=== PATIENT | female | born 1950 | race Caucasian/White ===

== ENCOUNTER 2019-01-30 12:26 | Day surgery (SDC) | payer MEDICARE ==
[~2019-01-30] VITALS: Ht 170.2 cm; Wt 126.1 kg
--- NOTE | 2019-01-30 13:00 | NUR ---
Dr Torres here, discussed postponing procedure today. CT of abdomen and pelvis ordered with out contrast. PT to d/c home after CT/from CT
--- NOTE | 2019-01-30 13:40 | NUR ---
pt to CT and then to home. To CT with all personal belongings, Addendum: 01/30/19 at 1429 by Jina Pan RN Amended: Links added.
== END 2019-01-30 13:40 | disposition home or self-care (01) ==
LOC: SSTAY O 12:26
PROVIDERS: ATTEND Radiology Diagnostic Radiology
DX: K46.9 Unspecified abdominal hernia without obstruction or gangrene (principal); E11.9 Type 2 diabetes mellitus without complications; I10 Essential (primary) hypertension; F41.8 Other specified anxiety disorders; E03.9 Hypothyroidism, unspecified; E78.5 Hyperlipidemia, unspecified; Z90.49 Acquired absence of other specified parts of digestive tract; Z98.890 Other specified postprocedural states; Z79.899 Other long term (current) drug therapy
CPT/HCPCS: 74176

== ENCOUNTER 2019-02-02 06:07 | Day surgery (SDC) | payer MEDICARE ==
[~2019-02-02] VITALS: Ht 170.2 cm; Wt 126.5 kg
[2019-02-02 06:40] VITALS: BP 149/72
[2019-02-02] MEDS ORDERED: PRAV20TA4 PO (06:45)
[2019-02-02] MEDS ORDERED: HYDR12.55 PO (06:45)
[2019-02-02] MEDS ORDERED: LEVO125T PO (06:45)
[2019-02-02] MEDS ORDERED: LISI-600 PO (06:45)
[2019-02-02] MEDS ORDERED: ATEN-169 PO (06:45)
[2019-02-02] MEDS ORDERED: CITA40TA22 PO (06:45)
[2019-02-02] MEDS ORDERED: normal saline 1000ml 1,000 ML IV PRN (06:55)
[2019-02-02] MEDS ORDERED: SITA1TAB2 PO (07:40)
[2019-02-02] MEDS ORDERED: ALPR-624 PO (07:42)
[2019-02-02 07:46] LABS: BASOPHILS % (AUTO) 0.7 % (0-1); EOSINOPHILS # (AUTO) 0.1 X10'3 (0-0.9); EOSINOPHILS % (AUTO) 2.2 % (0-6); HEMATOCRIT 40.5 % (35.0-45.0); HEMOGLOBIN 14.2 g/dl (12.0-16.0); LYMPHOCYTES # (AUTO) 1.7 X10'3 (1.1-4.8); LYMPHOCYTES % (AUTO) 24.4 % (21-51); MEAN CORPUSCULAR HGB CONC 35.1 g/dL (33.0-36.5); MEAN CORPUSCULAR VOLUME 94.2 FL (78-98); MEAN PLATELET VOLUME 8.6 FL (7.4-10.4); MONOCYTES # (AUTO) 0.5 X10'3 (0-0.9); MONOCYTES % (AUTO) 7.6 % (2-12); NEUTROPHILS # (AUTO) 4.5 X10'3 (1.8-7.7); NEUTROPHILS % (AUTO) 65.1 % (42-75); PLATELET COUNT 234 X10'3 (140-440); RED CELL DISTRIBUTION WIDTH 13.2 % (11.5-14.5); WHITE BLOOD COUNT 6.9 X10'3 (4.5-11.0)
[2019-02-02 07:53] LABS: ALBUMIN 3.1 G/DL (3.4-5.0); ANION GAP 9 (8-16); BLOOD UREA NITROGEN 31 MG/DL (7-18); BUN/CREATININE RATIO 33.7 (6.6-38.0); CALCIUM 10.1 MG/DL (8.5-10.1); CHLORIDE 97 MMOL/L (99-107); CREATININE 0.92 MG/DL (0.40-0.90); GLUCOSE 406 MG/DL (70-104); SODIUM 134 MMOL/L (135-145); TOTAL CARBON DIOXIDE 27.9 MMOL/L (24-32); eGFR 61 ML/MIN
[2019-02-02 08:03] LABS: PROTHROMBIN TIME 10.1 SECONDS (9.0-12.0)
[2019-02-02] MEDS ORDERED: midazolam 2 mg/2 ml injection IV PRN (08:15)
[2019-02-02] MEDS ORDERED: LIDOcaine 1%/PF 5ML 10 MG/ML VIAL SQ ONE (08:15)
[2019-02-02] MEDS ORDERED: normal saline 1000ml 1,000 ML IV SCH (08:15)
[2019-02-02] MEDS ORDERED: fentaNYL/PF 50MCG/1 ML 2ML syringe IV PRN (08:15)
[2019-02-02] MEDS ORDERED: fentaNYL/PF 50MCG/1 ML 2ML syringe ONE (08:22)
[2019-02-02] MEDS ORDERED: INSU300I SQ (08:22)
[2019-02-02 08:24] VITALS: BP 159/121
[2019-02-02] MEDS ORDERED: iohexol 350 MG/ML 50ML vial IV ONE (08:24)
--- NOTE | 2019-02-02 08:24 | NUR ---
call to angio suite Dr Concepcion not in yet, informed of [address] Concepcion not in yet Rodolfo RN states will inform Dr upon arrival. Justin Ceballos ORGANIZATIONAL EFFECTIVENESS DIRECTOR in unit for H & P on Pt, informed of elevated Blood Sugar of 412, no new orders as of yet.
--- NOTE | 2019-02-02 08:28 | NUR ---
Rodolfo here to tx pt to CT. Rodolfo RN states Dr Jamey arceo with Blood sugar value 412 at this time
[2019-02-02 09:34] VITALS: BP 118/69
[2019-02-02 09:50] VITALS: BP 161/85
[2019-02-02 10:00] VITALS: BP 176/86
[2019-02-02 10:15] VITALS: BP 156/83
== END 2019-02-02 10:45 | disposition home or self-care (01) ==
LOC: SSTAY O 06:07
PROVIDERS: ATTEND Radiology Vascular & Interventional Radiology
DX: K46.9 Unspecified abdominal hernia without obstruction or gangrene (principal); E11.9 Type 2 diabetes mellitus without complications; I10 Essential (primary) hypertension; F41.8 Other specified anxiety disorders; E03.9 Hypothyroidism, unspecified; E78.5 Hyperlipidemia, unspecified; Z90.49 Acquired absence of other specified parts of digestive tract; Z98.890 Other specified postprocedural states; Z79.899 Other long term (current) drug therapy
CPT/HCPCS: 36415; 74160; 80048; 82948; 85025; 85610; J3010; J7030; Q9967

== ENCOUNTER 2020-08-22 13:30 | Emergency (ER) | payer MEDICARE ==
[~2020-08-22] VITALS: Ht 167.6 cm; Wt 154.6 kg
[~2020-08-22 13:30] MED LIST: ALPR-624 PO; ATEN-169 PO; CITA40TA22 PO; HYDR12.55 PO; INSU300I SQ; LEVO125T PO; LISI-600 PO; PRAV20TA4 PO
[2020-08-22 14:30] LABS: BASOPHILS % (AUTO) 0.7 % (0-1); EOSINOPHILS % (AUTO) 0.6 % (0-6); HEMOGLOBIN 15.2 g/dl (12.0-16.0); LYMPHOCYTES # (AUTO) 1.8 X10'3 (1.1-4.8); LYMPHOCYTES % (AUTO) 29.5 % (21-51); MEAN CORPUSCULAR HEMOGLOBIN 37.1 PG (27.0-31.0); MEAN CORPUSCULAR HGB CONC 35.4 g/dL (33.0-36.5); MEAN PLATELET VOLUME 8.3 FL (7.4-10.4); MONOCYTES # (AUTO) 0.6 X10'3 (0-0.9); MONOCYTES % (AUTO) 9.3 % (2-12); NEUTROPHILS # (AUTO) 3.6 X10'3 (1.8-7.7); NEUTROPHILS % (AUTO) 59.9 % (42-75); PLATELET COUNT 289 X10'3 (140-440); RED BLOOD COUNT 4.09 X10'6 (4.20-5.60); RED CELL DISTRIBUTION WIDTH 13.1 % (11.5-14.5); WHITE BLOOD COUNT 5.9 X10'3 (4.5-11.0)
[2020-08-22 14:44] LABS: ALANINE AMINOTRANSFERASE 38 U/L (12-78); ALBUMIN 3.1 G/DL (3.4-5.0); ALBUMIN/GLOBULIN RATIO 0.7 (1.1-1.5); ALKALINE PHOSPHATASE 28 IU/L (46-116); ANION GAP 8 (8-16); ASPARTATE AMINO TRANSFERASE 49 U/L (10-37); BILIRUBIN,TOTAL 0.3 MG/DL (0.1-1.0); BLOOD UREA NITROGEN 25 MG/DL (7-18); BUN/CREATININE RATIO 24.8 (6.6-38.0); CALCIUM 9.8 MG/DL (8.5-10.1); CHLORIDE 91 MMOL/L (99-107); CREATININE 1.01 MG/DL (0.40-0.90); GLUCOSE 342 MG/DL (70-104); POTASSIUM 4.7 MMOL/L (3.5-5.1); SODIUM 128 MMOL/L (135-145); TOTAL PROTEIN 7.8 G/DL (6.4-8.2); eGFR 54 ML/MIN
[2020-08-22 14:47] LABS: LIPASE 306 U/L (73-393); TROPONIN I < 0.04 NG/ML (0.0-0.05)
--- NOTE | 2020-08-22 15:35 | NUR ---
call to son for ride, no answer,left message
--- NOTE | 2020-08-22 15:42 | NUR ---
second call to son for a ride, no answer
[2020-08-22 15:44] VITALS: BP 155/79
--- NOTE | 2020-08-22 15:51 | NUR ---
[facility] called for patient estimated time of arrival is 1620.
== END 2020-08-22 15:50 | disposition home or self-care (01) ==
LOC: ER 13:31
DX: R10.9 Unspecified abdominal pain (principal); F03.90 Unspecified dementia, unspecified severity, without behavioral disturbance, psychotic disturbance, mood disturbance, and anxiety; K46.9 Unspecified abdominal hernia without obstruction or gangrene
CPT/HCPCS: 36415; 71045; 80053; 83605; 83690; 84484; 85025; 93005; 99285

== ENCOUNTER 2021-06-15 13:12 | Emergency (ER) | payer MEDICARE ==
[~2021-06-15] VITALS: Ht 167.6 cm; Wt 119.1 kg
[~2021-06-15 13:12] MED LIST changes: -ALPR-624 PO; -ATEN-169 PO; +CITA20TA26 PO; -CITA40TA22 PO; +DILT240C92 PO; +DONE10TA44 PO; +GABA-530 PO; -HYDR12.55 PO; -LEVO125T PO; +LEVO125T8 PO; -LISI-600 PO; +LOP25T PO; +MAGN400T28 PO; +MEMA5TAB42 PO; +OMEP-50 PO; -PRAV20TA4 PO; +TRAM50TA2 PO; +WARF4TAB69 PO; +ZOLP5TAB8 PO
[2021-06-15 13:56] VITALS: BP 170/98
[2021-06-15] MEDS ORDERED: HYDR-3965 PO (14:05)
[2021-06-15] MEDS ORDERED: ONDA4TAB6 PO (14:05)
== END 2021-06-15 14:11 | disposition home or self-care (01) ==
LOC: ER 13:12
DX: G89.29 Other chronic pain (principal); R10.31 Right lower quadrant pain; F03.90 Unspecified dementia, unspecified severity, without behavioral disturbance, psychotic disturbance, mood disturbance, and anxiety; I48.91 Unspecified atrial fibrillation; I10 Essential (primary) hypertension; E11.9 Type 2 diabetes mellitus without complications; E03.9 Hypothyroidism, unspecified; Z79.01 Long term (current) use of anticoagulants; Z79.4 Long term (current) use of insulin; Z79.899 Other long term (current) drug therapy
CPT/HCPCS: 99283

== ENCOUNTER 2021-10-01 10:34 | Emergency (ER) | payer MEDICARE ==
[~2021-10-01] VITALS: Ht 167.6 cm; Wt 100.0 kg
[~2021-10-01 10:34] MED LIST changes: -MAGN400T28 PO; +MAGN400T56 PO; +ONDA4TAB6 PO
[2021-10-01 10:35] VITALS: BP 144/84
[2021-10-01] MEDS ORDERED: normal saline 1000ml 1,000 ML IV ONE ×2 (10:50→12:10)
[2021-10-01 11:07] LABS: BASOPHILS # (AUTO) 0.1 X10'3 (0-0.2); BASOPHILS % (AUTO) 0.6 % (0-1); EOSINOPHILS % (AUTO) 0.2 % (0-6); HEMATOCRIT 47.3 % (35.0-45.0); HEMOGLOBIN 16.7 g/dl (12.0-16.0); LYMPHOCYTES # (AUTO) 1.6 X10'3 (1.1-4.8); LYMPHOCYTES % (AUTO) 16.2 % (21-51); MEAN CORPUSCULAR HEMOGLOBIN 34.1 PG (27.0-31.0); MEAN CORPUSCULAR HGB CONC 35.4 g/dL (33.0-36.5); MEAN CORPUSCULAR VOLUME 96.4 FL (78-98); MEAN PLATELET VOLUME 8.3 FL (7.4-10.4); MONOCYTES # (AUTO) 0.6 X10'3 (0-0.9); MONOCYTES % (AUTO) 6.5 % (2-12); NEUTROPHILS # (AUTO) 7.5 X10'3 (1.8-7.7); NEUTROPHILS % (AUTO) 76.5 % (42-75); PLATELET COUNT 365 X10'3 (140-440); RED BLOOD COUNT 4.91 X10'6 (4.20-5.60); RED CELL DISTRIBUTION WIDTH 12.4 % (11.5-14.5); WHITE BLOOD COUNT 9.8 X10'3 (4.5-11.0)
[2021-10-01 11:27] LABS: ALANINE AMINOTRANSFERASE 21 U/L (12-78); ALBUMIN 3.5 G/DL (3.4-5.0); ALBUMIN/GLOBULIN RATIO 0.6 (1.1-1.5); ALKALINE PHOSPHATASE 25 IU/L (46-116); ANION GAP 15 (8-16); BILIRUBIN,TOTAL 0.7 MG/DL (0.1-1.0); BLOOD UREA NITROGEN 35 MG/DL (7-18); BUN/CREATININE RATIO 26.1 (6.6-38.0); CALCIUM 10.2 MG/DL (8.5-10.1); CHLORIDE 95 MMOL/L (99-107); CREATININE 1.34 MG/DL (0.40-0.90); GLUCOSE 433 MG/DL (70-104); SODIUM 132 MMOL/L (135-145); TOTAL CARBON DIOXIDE 21.7 MMOL/L (24-32); TOTAL PROTEIN 8.9 G/DL (6.4-8.2); eGFR 39 ML/MIN
[2021-10-01 11:33] LABS: ASPARTATE AMINO TRANSFERASE 33 U/L (10-37); LIPASE 207 U/L (73-393); MAGNESIUM 1.9 MG/DL (1.5-2.4); POTASSIUM 4.6 MMOL/L (3.5-5.1)
[2021-10-01] MEDS ORDERED: morphine 4 MG/ML inj SYRINge IV ONE (12:10)
[2021-10-01] MEDS ORDERED: ondansetron/PF 4mg/2ml inj IV ONE (12:10)
[2021-10-01] MEDS ORDERED: insulin regular, human 10 units/0.1 ml syringe IV ONE ×2 (12:10→13:45)
[2021-10-01] MEDS ORDERED: acetaminophen 325mg tablet PO ONE (12:10)
[2021-10-01 12:49] LABS: CLARITY,URINE SLIGHTLY CLOUDY (Clear); COLOR,URINE YELLOW (Yellow); GLUCOSE, URINE >=1000 mg/dl (Neg); KETONES,URINE NEGATIVE (Neg); LEUKOCYTE ESTERASE ,URINE NEGATIVE (Neg); NITRITES, URINE NEGATIVE (Neg); OCCULT BLOOD,URINE MODERATE (Neg); PH,URINE 5.5 (4.8-8.0); PROTEIN,URINE >=300 mg/dl (Neg); UROBILINOGEN,URINE 0.2 E.U/dL (0.2-1.0)
[2021-10-01 12:52] LABS: UA COLLECTION TYPE VOIDED
[2021-10-01 12:55] LABS: HYALINE CASTS 0-3 /LPF (NEGATIVE); SQUAMOUS EPITHELIAL CELL,UR MANY /LPF (FEW)
[2021-10-01 12:57] LABS: RBC,URINE 0-2 /HPF (0-2)
[2021-10-01 13:03] LABS: BACTERIA,URINE 2+ /HPF (Neg)
[2021-10-01] MEDS ORDERED: loperamide 2mg capsule PO ONE (13:25)
[2021-10-01] MEDS ORDERED: ONDA4TAB6 PO (13:39)
[2021-10-01] MEDS ORDERED: LOPE2CAP PO (13:39)
== END 2021-10-02 06:57 | disposition home or self-care (01) ==
LOC: ER 10:34
DX: M79.10 Myalgia, unspecified site (principal); Z20.822 Contact with and (suspected) exposure to COVID-19; K52.9 Noninfective gastroenteritis and colitis, unspecified; R11.2 Nausea with vomiting, unspecified; R52 Pain, unspecified; E11.65 Type 2 diabetes mellitus with hyperglycemia; I48.91 Unspecified atrial fibrillation; I10 Essential (primary) hypertension; E03.9 Hypothyroidism, unspecified; Z79.4 Long term (current) use of insulin; Z79.899 Other long term (current) drug therapy
CPT/HCPCS: 36415; 71045; 80053; 81001; 82948; 83690; 83735; 84145; 84484; 85025; 87635; 93005; 96361; 96374; 96375; 99285; C9803; J1815; J2270; J2405; J7030

== ENCOUNTER 2021-10-04 13:32 | Emergency (ER) | payer MEDICARE ==
[~2021-10-04] VITALS: Ht 170.2 cm; Wt 118.2 kg
[~2021-10-04 13:32] MED LIST changes: +LOPE2CAP PO
[2021-10-04] MEDS ORDERED: ondansetron/PF 4mg/2ml inj IV ONE (14:15)
[2021-10-04] MEDS ORDERED: normal saline 1000ML IV soln IVB ONE (14:15)
[2021-10-04 15:33] LABS: BASOPHILS # (AUTO) 0.1 X10'3 (0-0.2); EOSINOPHILS # (AUTO) 0.1 X10'3 (0-0.9); EOSINOPHILS % (AUTO) 1.1 % (0-6); HEMATOCRIT 44.1 % (35.0-45.0); HEMOGLOBIN 15.7 g/dl (12.0-16.0); LYMPHOCYTES % (AUTO) 31.6 % (21-51); MEAN CORPUSCULAR HEMOGLOBIN 34.4 PG (27.0-31.0); MEAN CORPUSCULAR HGB CONC 35.5 g/dL (33.0-36.5); MEAN CORPUSCULAR VOLUME 96.8 FL (78-98); MEAN PLATELET VOLUME 8.5 FL (7.4-10.4); MONOCYTES # (AUTO) 0.8 X10'3 (0-0.9); MONOCYTES % (AUTO) 11.9 % (2-12); NEUTROPHILS # (AUTO) 3.5 X10'3 (1.8-7.7); NEUTROPHILS % (AUTO) 54.4 % (42-75); PLATELET COUNT 334 X10'3 (140-440); RED BLOOD COUNT 4.55 X10'6 (4.20-5.60); RED CELL DISTRIBUTION WIDTH 12.6 % (11.5-14.5); WHITE BLOOD COUNT 6.4 X10'3 (4.5-11.0)
[2021-10-04 15:36] LABS: ALANINE AMINOTRANSFERASE 27 U/L (12-78); ALBUMIN 3.3 G/DL (3.4-5.0); ALBUMIN/GLOBULIN RATIO 0.7 (1.1-1.5); ALKALINE PHOSPHATASE 23 IU/L (46-116); ANION GAP 11 (8-16); ASPARTATE AMINO TRANSFERASE 33 U/L (10-37); BILIRUBIN,TOTAL 0.4 MG/DL (0.1-1.0); BLOOD UREA NITROGEN 24 MG/DL (7-18); BUN/CREATININE RATIO 24.2 (6.6-38.0); CHLORIDE 99 MMOL/L (99-107); CREATININE 0.99 MG/DL (0.40-0.90); GLUCOSE 283 MG/DL (70-104); LIPASE 134 U/L (73-393); POTASSIUM 4.1 MMOL/L (3.5-5.1); SODIUM 134 MMOL/L (135-145); TOTAL CARBON DIOXIDE 24.5 MMOL/L (24-32); TOTAL PROTEIN 8.2 G/DL (6.4-8.2); eGFR 55 ML/MIN
[2021-10-04 15:48] LABS: CALCIUM 10.3 MG/DL (8.5-10.1)
[2021-10-04] MEDS ORDERED: CEPH250T PO (15:56)
[2021-10-04 16:14] LABS: CLARITY,URINE CLEAR (Clear); COLOR,URINE YELLOW (Yellow); GLUCOSE, URINE >=1000 mg/dl (Neg); KETONES,URINE NEGATIVE (Neg); LEUKOCYTE ESTERASE ,URINE NEGATIVE (Neg); NITRITES, URINE NEGATIVE (Neg); OCCULT BLOOD,URINE SMALL (Neg); PH,URINE 5.5 (4.8-8.0); PROTEIN,URINE >=300 mg/dl (Neg); UROBILINOGEN,URINE 0.2 E.U/dL (0.2-1.0)
[2021-10-04 16:22] LABS: UA COLLECTION TYPE CLN CATCH MIDSTREAM
[2021-10-04 16:23] LABS: BACTERIA,URINE NONE SEEN /HPF (Neg); MUCUS STRANDS FEW /LPF (Neg); RBC,URINE 0-2 /HPF (0-2); SQUAMOUS EPITHELIAL CELL,UR FEW /LPF (FEW); TRANSITIONAL EPI CELLS,URINE FEW /HPF; WBC,URINE 0-4 /HPF (0-4)
[2021-10-04 17:04] VITALS: BP 166/70
== END 2021-10-04 17:18 | disposition home or self-care (01) ==
LOC: ER 13:32
DX: N39.0 Urinary tract infection, site not specified (principal); M79.604 Pain in right leg; M79.605 Pain in left leg; R20.0 Anesthesia of skin; F03.91 Unspecified dementia, unspecified severity, with behavioral disturbance; I48.91 Unspecified atrial fibrillation; I10 Essential (primary) hypertension; E11.9 Type 2 diabetes mellitus without complications; E03.9 Hypothyroidism, unspecified; Z79.4 Long term (current) use of insulin; Z79.899 Other long term (current) drug therapy; Z79.01 Long term (current) use of anticoagulants; Z79.2 Long term (current) use of antibiotics; Z98.890 Other specified postprocedural states
CPT/HCPCS: 36415; 80053; 81001; 83690; 85025; 96361; 96374; 99283; J2405; J7030; 99284

== ENCOUNTER 2022-03-31 18:42 | Emergency (ER) | payer MEDICARE ==
[~2022-03-31] VITALS: Ht 170.2 cm; Wt 136.4 kg
[~2022-03-31 18:42] MED LIST changes: -OMEP-50 PO; +OMEP20CA16 PO
[2022-03-31 20:47] VITALS: BP 105/70
[2022-03-31] MEDS ORDERED: acetaminophen 325mg tablet PO ONE (22:20)
[2022-03-31 22:43] LABS: BASOPHILS % (AUTO) 0.9 % (0-1); EOSINOPHILS % (AUTO) 0.4 % (0-6); HEMATOCRIT 39.5 % (35.0-45.0); HEMOGLOBIN 13.9 g/dl (12.0-16.0); LYMPHOCYTES # (AUTO) 0.9 X10'3 (1.1-4.8); MEAN CORPUSCULAR HEMOGLOBIN 33.8 PG (27.0-31.0); MEAN CORPUSCULAR HGB CONC 35.2 g/dL (33.0-36.5); MEAN PLATELET VOLUME 7.9 FL (7.4-10.4); MONOCYTES # (AUTO) 0.5 X10'3 (0-0.9); MONOCYTES % (AUTO) 10.6 % (2-12); NEUTROPHILS # (AUTO) 3.1 X10'3 (1.8-7.7); NEUTROPHILS % (AUTO) 69.1 % (42-75); PLATELET COUNT 254 X10'3 (140-440); RED BLOOD COUNT 4.12 X10'6 (4.20-5.60); RED CELL DISTRIBUTION WIDTH 13.4 % (11.5-14.5); WHITE BLOOD COUNT 4.5 X10'3 (4.5-11.0)
[2022-03-31] MEDS ORDERED: HYDROcodone/acetaminophen 5mg/325mg tablet PO ONE (23:30)
[2022-03-31] MEDS ORDERED: ondansetron 4mg rapidly disintigrating tab PO ONE (23:30)
[2022-03-31 23:37] LABS: ALANINE AMINOTRANSFERASE 32 U/L (12-78); ALBUMIN 3.1 G/DL (3.4-5.0); ALBUMIN/GLOBULIN RATIO 0.7 (1.1-1.5); ALKALINE PHOSPHATASE 20 IU/L (46-116); ANION GAP 12 (8-16); ASPARTATE AMINO TRANSFERASE 40 U/L (10-37); BILIRUBIN,TOTAL 0.1 MG/DL (0.1-1.0); BLOOD UREA NITROGEN 30 MG/DL (7-18); BUN/CREATININE RATIO 27.3 (6.6-38.0); CALCIUM 9.3 MG/DL (8.5-10.1); CHLORIDE 98 MMOL/L (99-107); GLUCOSE 392 MG/DL (70-104); LIPASE 304 U/L (73-393); MAGNESIUM 1.7 MG/DL (1.5-2.4); POTASSIUM 3.8 MMOL/L (3.5-5.1); SODIUM 133 MMOL/L (135-145); TOTAL CARBON DIOXIDE 22.8 MMOL/L (24-32); TOTAL PROTEIN 7.3 G/DL (6.4-8.2); eGFR 49 ML/MIN
[2022-04-01] MEDS ORDERED: HYDR-3965 PO (00:05)
== END 2022-04-01 00:45 | disposition home or self-care (01) ==
LOC: ER 18:42
DX: R10.9 Unspecified abdominal pain (principal); G89.29 Other chronic pain; R30.9 Painful micturition, unspecified; R11.0 Nausea; R07.89 Other chest pain; K59.00 Constipation, unspecified; R35.0 Frequency of micturition; K46.9 Unspecified abdominal hernia without obstruction or gangrene; R05.9 Cough, unspecified; I48.91 Unspecified atrial fibrillation; E11.9 Type 2 diabetes mellitus without complications; I10 Essential (primary) hypertension; E03.9 Hypothyroidism, unspecified; Z98.890 Other specified postprocedural states; Z79.4 Long term (current) use of insulin; Z79.899 Other long term (current) drug therapy
CPT/HCPCS: 36415; 71045; 74176; 80053; 83605; 83690; 83735; 84145; 84484; 85025; 99285

== ENCOUNTER 2022-09-03 21:57 | Emergency (ER) | payer MEDICARE ==
[~2022-09-03] VITALS: Ht 172.7 cm; Wt 124.0 kg
--- NOTE | 2022-09-03 22:30 | NUR ---
BLOOD GLUCOSE READS HI>> ON ACCUCHECK, ems BLOOD GLUCOSE IN 500'S. NOTIFIED
[2022-09-03] MEDS ORDERED: normal saline 1000ML IV soln IVB ONE (22:40)
[2022-09-03] MEDS ORDERED: acetaminophen 325mg tablet PO ONE (22:40)
[2022-09-03 23:12] LABS: BASOPHILS # (AUTO) 0.1 X10'3 (0-0.2); BASOPHILS % (AUTO) 0.9 % (0-1); EOSINOPHILS # (AUTO) 0.1 X10'3 (0-0.9); EOSINOPHILS % (AUTO) 1.6 % (0-6); HEMOGLOBIN 14.3 g/dl (12.0-16.0); LYMPHOCYTES # (AUTO) 1.9 X10'3 (1.1-4.8); LYMPHOCYTES % (AUTO) 28.4 % (21-51); MEAN CORPUSCULAR HEMOGLOBIN 32.7 PG (27.0-31.0); MEAN CORPUSCULAR HGB CONC 34.1 g/dL (33.0-36.5); MEAN CORPUSCULAR VOLUME 95.9 FL (78-98); MONOCYTES # (AUTO) 0.8 X10'3 (0-0.9); MONOCYTES % (AUTO) 11.2 % (2-12); NEUTROPHILS % (AUTO) 57.9 % (42-75); PLATELET COUNT 312 X10'3 (140-440); RED BLOOD COUNT 4.38 X10'6 (4.20-5.60); RED CELL DISTRIBUTION WIDTH 13.6 % (11.5-14.5); WHITE BLOOD COUNT 6.8 X10'3 (4.5-11.0)
[2022-09-03 23:38] LABS: ALANINE AMINOTRANSFERASE 15 U/L (12-78); ALBUMIN 2.9 G/DL (3.4-5.0); ALBUMIN/GLOBULIN RATIO 0.5 (1.1-1.5); ALKALINE PHOSPHATASE 37 IU/L (46-116); ANION GAP 10 (8-16); ASPARTATE AMINO TRANSFERASE 26 U/L (10-37); BILIRUBIN,TOTAL 0.2 MG/DL (0.1-1.0); BLOOD UREA NITROGEN 29 MG/DL (7-18); BUN/CREATININE RATIO 24.4 (6.6-38.0); CALCIUM 10.3 MG/DL (8.5-10.1); CHLORIDE 93 MMOL/L (99-107); CREATININE 1.19 MG/DL (0.40-0.90); ETHANOL < 0.010 GM/DL (0.0-0.010); MAGNESIUM 1.7 MG/DL (1.5-2.4); POTASSIUM 4.4 MMOL/L (3.5-5.1); SODIUM 130 MMOL/L (135-145); TOTAL CARBON DIOXIDE 26.7 MMOL/L (24-32); TOTAL PROTEIN 8.4 G/DL (6.4-8.2); eGFR 45 ML/MIN
[2022-09-03 23:41] LABS: GLUCOSE 544 MG/DL (70-104)
[2022-09-03] MEDS ORDERED: insulin regular, human 10 units/0.1 ml syringe IV ONE (23:45)
[2022-09-03] MEDS ORDERED: furosemide 10 MG/1 ML 10ml inj IV ONE (23:45)
--- NOTE | 2022-09-04 01:22 | NUR ---
100 ML URINE OUTPUT, MULTIPLE EPISODES OF INCONTINANCE
--- NOTE | 2022-09-04 01:29 | NUR ---
BLOOD GLUCOSE 472, NOTIFIED
[2022-09-04] MEDS ORDERED: insulin regular, human 10 units/0.1 ml syringe IV ONE (01:30)
[2022-09-04] MEDS ORDERED: METO-395 PO (02:47)
[2022-09-04] MEDS ORDERED: METF-900 PO (02:47)
[2022-09-04 02:52] LABS: CLARITY,URINE CLEAR (Clear); COLOR,URINE YELLOW (Yellow); GLUCOSE, URINE >=1000 mg/dl (Neg); KETONES,URINE NEGATIVE (Neg); LEUKOCYTE ESTERASE ,URINE TRACE (Neg); NITRITES, URINE NEGATIVE (Neg); OCCULT BLOOD,URINE TRACE-INTACT (Neg); PH,URINE 5.5 (4.8-8.0); PROTEIN,URINE 30 mg/dl (Neg); UROBILINOGEN,URINE 0.2 E.U/dL (0.2-1.0)
[2022-09-04 03:12] LABS: BACTERIA,URINE FEW /HPF (Neg); RBC,URINE 0-2 /HPF (0-2); SQUAMOUS EPITHELIAL CELL,UR FEW /LPF (FEW); UA COLLECTION TYPE NON-SPECIFIED; WBC,URINE 0-4 /HPF (0-4)
[2022-09-04 03:19] VITALS: BP 138/98
== END 2022-09-04 04:37 | disposition home or self-care (01) ==
LOC: ER 21:58
DX: M79.605 Pain in left leg (principal); B35.3 Tinea pedis; E11.65 Type 2 diabetes mellitus with hyperglycemia; F03.90 Unspecified dementia, unspecified severity, without behavioral disturbance, psychotic disturbance, mood disturbance, and anxiety; I10 Essential (primary) hypertension; E03.9 Hypothyroidism, unspecified; Z79.899 Other long term (current) drug therapy; Z79.84 Long term (current) use of oral hypoglycemic drugs
CPT/HCPCS: 36415; 70450; 72170; 73552; 73560; 73590; 80053; 80320; 81001; 82948; 83735; 83880; 85025; 85610; 87077; 87088; 87186; 93005; 96361; 96374; 96375; 96376; 99285; J1815; J1940; J7030; A4620

== ENCOUNTER 2022-09-24 12:31 | Emergency (ER) | payer MEDICARE ==
[~2022-09-24] VITALS: Ht 170.2 cm; Wt 148.0 kg
[~2022-09-24 12:31] MED LIST changes: +APIX5TAB3 PO; +ATOR10TA PO; +AZIT500T9 PO; -CITA20TA26 PO; -DILT240C92 PO; -DONE10TA44 PO; -GABA-530 PO; +HYDR12.55 PO; -INSU300I SQ; -LEVO125T8 PO; +LISI2.5T14 PO; -LOP25T PO; -LOPE2CAP PO; -MAGN400T56 PO; -MEMA5TAB42 PO; +METF-516 PO; +METO-395 PO; -OMEP20CA16 PO; -ONDA4TAB6 PO; +PIOG45TA5 PO; -TRAM50TA2 PO; -WARF4TAB69 PO; -ZOLP5TAB8 PO; +atorvastatin 10mg tablet PO ONE; +azithromycin 250mg tablet PO ONE
--- NOTE | 2022-09-24 12:55 | NUR ---
[facility] assessment: Patient is resting comfortably at nurse arrival and in no acute distress. Alert and oriented x3. ID by name and . Agrees to assessment and intent. Heels and sacrum red and blanching. Her adalberto area, pannus and groin are a light red due Intertrigo which has improved significantly. Adalberto care provided, chux pad replaced and INZO cream applied to sacrococcygeal area. Nystatin powder applied liberally to pannus folds, groin and under both breasts. Less redness noted today. She denies pain and stated she was going home today. Patient was left in a position of comfort, bed locked and low. Call light in reach. Report off to primary nurse.
--- NOTE | 2022-09-24 14:23 | NUR ---
PT DHEERAJ MAGAÑA WAS RETURNED TO THE HOSPITAL BY HUMZA CARGO BECAUSE SHE REFUSED TO GO TO REHAB. HUMZA CARGO TOOK PT BACK TO HER HOME AND HER REFUSED TO ASSIST IN GETTING HER INTO THE HOME. HUMZA CARGO TOOK PT BACK TO THE SURGICAL FLOOR AND THEY SENT PT DOWN TO THE ER. CASE MANAGEMENT AND AGENT SPA DESK WERE NOTIFIED. DAHIANA IN CASE MANAGEMENT CALLED AND THERE IS A TRANSPORT TIME OF 1230 [place] TO TAKE PT HOME. MULTIPLE TRANSPORT COMPANIES HAVE BEEN CALLED AND NO ONE CAN TAKE HER AT THIS TIME. [facility] MAY BE ABLE TO TRANSPORT PT HOME, BUT ONLY WHEN THERE IS A BREAK IN THEIR 911 CALLS. PT HAS BEEN TRIAGE AND IS AWAITING A ROOM IN THE ER AT THIS TIME
--- NOTE | 2022-09-24 18:00 | NUR ---
PT WAS BROUGHT IN TO ER17 FOR EVENING TO WAIT FOR TRANSPORT HOME. PT HAS BEEN REGISTERED BUT NOT SEEN CURRENTLY. DISCUSSED SITUATION WITH DR BONILLA. PER CASE MANAGEMENT, PT HAS PENDING TRANSPORT HOME AT [address] BONILLA IS AWARE OF THE SITUATION.
[2022-09-24] MEDS ORDERED: APIX5TAB3 PO (18:43)
[2022-09-24] MEDS ORDERED: ATOR10TA70 PO (18:48)
[2022-09-24] MEDS ORDERED: PIOG15TA8 PO (18:48)
[2022-09-24] MEDS ORDERED: AZIT-83 PO (18:48)
[2022-09-24] MEDS ORDERED: LISI20TA28 PO (18:48)
[2022-09-24] MEDS ORDERED: metFORMIN 500mg tablet PO ONE (19:00)
--- NOTE | 2022-09-24 19:26 | NUR ---
[facility] called to send ambulance. Called spouse number multiple times and there is no answer. Informed [facility] about this and so they were cancelled for tonight.
[2022-09-24] MEDS ORDERED: apixaban 5mg tablet PO SCH (20:00)
--- NOTE | 2022-09-24 20:10 | NUR ---
ASSUMED CARE OF PT. PT IS AWAITING TRANSPORT THAT IS SCHEDULED FOR TOMORROW IN ER[facility].
--- NOTE | 2022-09-24 22:56 | NUR ---
pt found out of bed atempting o walk to the hallway naked. pt soiled bed. pt was cleaned up, reoriented, and returned back to bed. pt attempted to refuse bed change.
--- NOTE | 2022-09-25 06:50 | NUR ---
REPORT FROM [facility] FOR CONTINUATION OF CARE. PT IS LAYING IN POSITION OF COMFORT. AO2 DENIES CP OR SOB. RESP EVEN UNLABORED. PT IS DRY WITH NOTED REDDNESS TO GROIN AND UPPER THIGH. CALL LIGHT WITHIN REACH
[2022-09-25] MEDS ORDERED: pioglitazone 15mg tablet PO SCH (08:00)
[2022-09-25] MEDS ORDERED: atorvastatin 10mg tablet PO SCH (08:00)
[2022-09-25] MEDS ORDERED: lisinopril 2.5mg tablet PO SCH (08:00)
[2022-09-25] MEDS ORDERED: azithromycin 250mg tablet PO SCH (08:00)
[2022-09-25] MEDS ORDERED: metoprolol succinate 25mg (24-HOUR) SR. Tablet PO SCH (08:00)
[2022-09-25] MEDS ORDERED: HYDROchlorothiazide 12.5mg capsule PO SCH (08:00)
[2022-09-25] MEDS ORDERED: apixaban 5mg tablet PO SCH (08:00)
[2022-09-25] MEDS ORDERED: metFORMIN 500mg tablet PO SCH (08:00)
--- NOTE | 2022-09-25 10:53 | NUR ---
pt was dried and changed with purwik put in place with medieum suction. redness noted periarea and abdominal folds. skin intact. will make md aware. will ask for barrier cream order. primer charger aware. pt remains at baseline aox2 speaks clearly and in complete sentences. periodic confusion.
--- NOTE | 2022-09-25 11:08 | NUR ---
barrier cream applied to affected areas. pt tolerated well.
--- NOTE | 2022-09-25 13:36 | NUR ---
Per ER staff, [facility] states that patient was not scheduled for transport today at 1230, explained that I listened to scheduled CM yesterday make arrangments for 09/25/22 at 1230, primary nurse states he has already scheduled transport with [facility] today for home discharge, home health referral sent to [facility], waiting for response
[2022-09-25 14:30] VITALS: BP 125/80
== END 2022-09-25 14:00 | disposition home or self-care (01) ==
LOC: ER 12:32
DX: Z13.89 Encounter for screening for other disorder (principal); R53.1 Weakness; I48.91 Unspecified atrial fibrillation; I10 Essential (primary) hypertension; E11.9 Type 2 diabetes mellitus without complications; E03.9 Hypothyroidism, unspecified; Z98.890 Other specified postprocedural states; Z79.2 Long term (current) use of antibiotics; Z79.899 Other long term (current) drug therapy
CPT/HCPCS: 99285

== ENCOUNTER 2024-11-28 06:03 | Outpatient (CLI) | payer MEDICARE ==
[~2024-11-28 06:03] MED LIST changes: -ATOR10TA PO; +ATOR10TA70 PO; +AZIT-164 PO; -AZIT500T9 PO; -LISI2.5T14 PO; +LISI20TA28 PO; +PIOG15TA8 PO; -PIOG45TA5 PO; -atorvastatin 10mg tablet PO ONE; -azithromycin 250mg tablet PO ONE
== END 2024-11-28 23:59 | disposition home or self-care (01) ==
LOC: MRI02 06:03
PROVIDERS: ATTEND Podiatrist Foot & Ankle Surgery
DX: S93.401A Sprain of unspecified ligament of right ankle, initial encounter (principal); M25.471 Effusion, right ankle; X58.XXXA Exposure to other specified factors, initial encounter; Y93.89 Activity, other specified; Y92.89 Other specified places as the place of occurrence of the external cause; Y99.8 Other external cause status
CPT/HCPCS: 73718